=== PATIENT | female | born 1985 | race Caucasian/White ===

== ENCOUNTER 2017-07-05 09:28 | Emergency (ER) | payer OTHER ==
[2017-07-05 09:39] VITALS: BP 115/84; PULSE 89; RESP 16; TEMP 98.7; O2SAT 96
--- NOTE | 2017-07-05 09:48 | ED PDOC ---
Arrival/HPI - General Chief Complaint: Upper Extremity Problem/Injury Time Seen by Provider: 07/05/17 09:43 Historian: Patient - History of Present Illness Narrative History of Present Illness (Text): 07/05/17 09:44 32 y/o female, no significant pmh, nkda, c/o rt. shoulder pain x 2 days. Pt. stated was turning the steering wheel for tractor trailer, heard the rt. shoulder popping sound, been having pain, no numbness or tingling, no difficulty moving the rt. shoulder, no pain medications taken at home, no other medical or psychological complaints. Past Medical History - Provider Review Nursing Documentation Reviewed: Yes - Infectious Disease Hx of Infectious Diseases: None - Psychiatric Hx Substance Use: No - Surgical History Hx Section: Yes (x3) Hx Tubal Ligation: Yes Family/Social History - Physician Review Nursing Documentation Reviewed: Yes Family/Social History: Unknown Family HX Smoking Status: Light Smoker < 10 Cigarettes Daily Hx Alcohol Use: Yes Frequency of alcohol use: Socially Hx Substance Use: No Allergies/Home Meds Allergies/Adverse Reactions: Allergies No Known Allergies Allergy (Verified 07/05/17 09:39) Review of Systems - Review of Systems Constitutional: absent: Fatigue, Fevers Eyes: absent: Vision Changes ENT: absent: Hearing Changes Respiratory: absent: SOB, Cough Cardiovascular: absent: Chest Pain Gastrointestinal: absent: Abdominal Pain, Nausea, Vomiting Musculoskeletal: Arthralgias. absent: Back Pain, Neck Pain, Joint Swelling, Myalgias Skin: absent: Rash, Pruritis, Skin Lesions Neurological: absent: Headache Psychiatric: absent: Anxiety, Depression Physical Exam Vital Signs Reviewed: Yes Vital Signs Temp Pulse Resp BP Pulse Ox 07/05/17 09:31 98.7 F 89 16 115/84 96 Temperature: Afebrile Blood Pressure: Normal Pulse: Regular Respiratory Rate: Normal Appearance: Positive for: Well-Appearing, Non-Toxic, Comfortable Pain Distress: Moderate Mental Status: Positive for: Alert and Oriented X 3 - Systems Exam Head: Present: Atraumatic, Normocephalic Pupils: Present: PERRL Extroacular Muscles: Present: EOMI Conjunctiva: Present: Normal Mouth: Present: Moist Mucous Membranes Neck: Present: Normal Range of Motion Respiratory/Chest: Present: Clear to Auscultation, Good Air Exchange. No: Respiratory Distress, Accessory Muscle Use Cardiovascular: Present: Regular Rate and Rhythm, Normal S1, S2. No: Murmurs Abdomen: Present: Normal Bowel Sounds. No: Tenderness, Distention, Peritoneal Signs Back: Present: Normal Inspection Upper Extremity: Present: Normal Inspection, Other (Rt. shoulder: +ttp on the rt. anterior shoulder joint/AC joint, no swelling, no deformity, FROM without limitation, sensation intact, motor 5/5, +radial pulse, capillary refill< 2 seconds, neurovascular intact. ). No: Cyanosis, Edema Lower Extremity: Present: Normal Inspection. No: Edema Neurological: Present: GCS=15, CN II-XII Intact, Speech Normal Skin: Present: Warm, Dry, Normal Color. No: Rashes Psychiatric: Present: Alert, Oriented x 3, Normal Insight, Normal Concentration Medical Decision Making ED Course and Treatment: 07/05/17 09:47 -rt. shoulder xray -motrin -sling -Discharge home with naproxen, sling, ice compression, follow up with your own pmd and orthopedic within 2 days, return to the ER for any new or worsening signs or symptoms. 07/05/17 10:25 - ER wet read: mild widening gapping of the rt. AC joint which concerning for the rt. AC joint separation, no fracture or dislocation - RAD Interpretation Radiology Orders: 07/05/17 09:44 SHOULDER RIGHT [RAD] Stat no fracture or dislocation Auto Body Straightener: Radiologist - Medication Orders Current Medication Orders: Discontinued Medications Ibuprofen (Motrin Tab) 600 mg PO STAT STA Stop: 07/05/17 09:45 Last Admin: 07/05/17 09:51 Dose: 600 mg - PA / [employer]INDER EXTERNAL / Resident Statement MD/DO has reviewed & agrees with the documentation as recorded. Disposition/Present on Arrival - Present on Arrival Any Indicators Present on Arrival: No History of DVT/PE: No History of Uncontrolled Diabetes: No Urinary Catheter: No History of Decub. Ulcer: No History Surgical Site Infection Following: None - Disposition Have Diagnosis and Disposition been Completed?: Yes Diagnosis: Shoulder injury, Shoulder pain, AC joint pain Disposition: HOME/ ROUTINE Disposition Time: 09:48 Patient Plan: Discharge Condition: GOOD Additional Instructions: -Discharge home with naproxen, sling, ice compression, follow up with your own pmd and orthopedic within 2 days, return to the ER for any new or worsening signs or symptoms. Prescriptions: Naproxen 500 mg PO BID PRN #20 tab PRN Reason: Other Referrals: Meño Montiel III, MD [Medical Doctor] - Follow up with primary Forms: [email or web address] ([place]), WORK NOTE
--- NOTE | 2017-07-05 10:52 | RAD ---
PROCEDURE: Radiographs of the Right Shoulder HISTORY: rt. shoulder joint and pain COMPARISON: No prior. FINDINGS: BONES: No fracture JOINTS: No. osteoarthritis. The right acromioclavicular joint space is top-normal/ borderline increased. No superior inferior subluxation suggested. SOFT TISSUES: Normal. OTHER FINDINGS: None. IMPRESSION: No fracture or dislocation. No arthrosis. The right acromioclavicular joint space is indeterminate ; it appears top-normal/ borderline increased. No superior inferior subluxation suggested
== END 2017-07-05 10:35 | disposition home or self-care (01) ==
LOC: ED 09:28
DX: S49.91XA Unspecified injury of right shoulder and upper arm, initial encounter (principal); X50.0XXA Overexertion from strenuous movement or load, initial encounter; Y93.89 Activity, other specified; Y92.89 Other specified places as the place of occurrence of the external cause; Y99.8 Other external cause status